=== PATIENT | female | born 1980 | race Caucasian/White ===

== ENCOUNTER 2021-01-26 13:00 | Emergency (ER) | payer MEDICAID ==
[~2021-01-26] VITALS: Ht 162.6 cm; Wt 75.0 kg
[2021-01-26 13:06] VITALS: BP 148/70; Ht 162.6 cm; Wt 75.0 kg
[2021-01-26 13:35] LABS: BILIRUBIN NEGATIVE (NEGATIVE); KETONE NEGATIVE (NEGATIVE); NITRITE NEGATIVE (NEGATIVE); UROBILINOGEN NORMAL mg/dL (< 2)
[2021-01-26 13:36] LABS: BACTERIA MODERATE HPF (NONE SEEN); WHITE CELLS - URINE 0-5 HPF (0-4)
[2021-01-26 13:46] LABS: BASOPHILS 0.2 % (0-2); EOSINOPHILS 0.8 % (0-7); HEMATOCRIT 50.7 % (36.0-48.0); HEMOGLOBIN 17.3 g/dL (12-16); LYMPHOCYTES 8.3 % (15-50); MCH 31.7 pg (26.0-34.0); MEAN PLATELET VOLUME 10.1 fL (7.4-10.4); MONOCYTES 2.8 % (2-11); NEUTROPHILS 87.9 % (40-80); PLATELET COUNT 217 10x3/uL (130-400); RBC 5.45 10x6/uL (4.00-5.40); RDW 13.4 % (11.5-14.5); WBC 14.3 10x3/uL (4.8-10.8)
[2021-01-26 14:42] LABS: CALC OSMOLALITY 267 mosm/kg (275-300); CARBON DIOXIDE 23.4 mmol/L (21.0-32.0); CHLORIDE - SERUM 103 mmol/L (98-107); CREATININE - SERUM 0.6 mg/dL (0.6-1.3); GLUCOSE 90 mg/dL (74-106); POTASSIUM - SERUM 3.9 mmol/L (3.5-5.1); SODIUM 134 mmol/L (136-145); UREA NITROGEN 13 mg/dL (7-18); eGFR NON AFRICAN AMERICAN > 90 mL/min (90-120)
[2021-01-26 14:51] LABS: ALBUMIN 3.7 g/dL (3.4-5.0); ALKALINE PHOSPHATASE 74 U/L (30-120); ALT (SGPT) 30 U/L (10-68); AMYLASE - SERUM 36 U/L (25-115); BILIRUBIN - TOTAL 0.65 mg/dL (0.2-1.3); LIPASE 73 U/L (73-393); PROTEIN - SERUM 7.1 g/dL (6.4-8.2); TROPONIN-I < 0.017 ng/mL (0.000-0.060)
[2021-01-26] MEDS ORDERED: ZOFRAN ODT4 MG/UDTAB PO (15:44)
[2021-01-26] MEDS ORDERED: MACROBID100 MG PO (15:44)
[2021-01-26] MEDS ORDERED: CEPHALEXIN500 M1 PO (15:44)
== END 2021-01-26 16:25 | disposition home or self-care (01) ==
LOC: D.ER 13:00
PROVIDERS: Family Medicine
DX: R10.30 Lower abdominal pain, unspecified (principal); N39.0 Urinary tract infection, site not specified; M54.5 Low back pain